=== PATIENT | female | born 1955 | race Hispanic/Latino ===

== ENCOUNTER → 2018-10-05 | Outpatient (CLI) | payer OTHER ==
--- NOTE | 2018-10-10 08:27 | Pulmonary Function Test ---
DATE OF STUDY: October 05, 2018 Complete pulmonary function was ordered, but nitroglycerin washout and diffusion capacity were malfunctioning. Spirometry was performed, which was restrictive. Forced vital capacity: 1.90 liters, 72% of predicted. FEV1: 1.78 liters, 86% of predicted. FEV1/FVC ratio: 92%, restrictive pattern. Lung volumes and diffusion capacities will be performed once the equipment has been restored. Job#: [id number]
== END ==
LOC: RESP 10:25
PROVIDERS: ATTEND Internal Medicine Cardiovascular Disease
DX: I48.0 Paroxysmal atrial fibrillation (principal); R06.09 Other forms of dyspnea
CPT/HCPCS: 94010